=== PATIENT | male | born 1950 | race Caucasian/White ===

== ENCOUNTER 2016-10-22 22:56 | Inpatient (IN) | payer MEDICARE ==
[~2016-10-22] VITALS: Ht 180.3 cm; Wt 77.6 kg
--- NOTE | 2016-10-22 23:21 | NUR ---
PT TO RM 16 VIA EMS.
--- NOTE | 2016-10-23 00:01 | NUR ---
BILAT LOWER EXTREMITIES WITH WEEPING SKIN, SLOUGHING PT'S SOCKS LOOK EMBEDDED ONTO LEGS. PT RELATED HE HAS NOT HAD HIS SOCKS OF IN WEEKS.
--- NOTE | 2016-10-23 00:30 | NUR ---
PTS RESP 24 COURSE. PT DENIED SOB.
[2016-10-23 01:04] LABS: HEMATOCRIT 48.1 % (39.0-50.0); HEMOGLOBIN 16.5 g/dl (14.0-18.0); IMMATURE GRANULOCYTES 1.3 % (0.0-1.0); MEAN CELL VOLUME 92.9 fL CALC (80.0-100.0); MEAN CORPUSCULAR HGB 31.9 pG CALC (26.0-32.0); MEAN CORPUSCULAR HGB CONC 34.3 g/L CALC (32.0-36.0); NEUT# 10.94 thou/uL (1.82-7.42); RED BLOOD COUNT 5.18 mill/uL (4.70-6.10); RED CELL DISTRI WIDTH 11.7 % (11.5-15.5)
[2016-10-23 01:29] LABS: URINE BILIRUBIN - DIPSTICK NEGATIVE (NEGATIVE); URINE BLOOD DIPSTICK MODERATE (NEGATIVE); URINE CLARITY CLEAR; URINE COLOR YELLOW; URINE GLUCOSE - DIPSTICK NEGATIVE (NEGATIVE); URINE KETONE NEGATIVE (NEGATIVE); URINE LEUK ESTERASE NEGATIVE (NEGATIVE); URINE NITRITE - DIPSTICK NEGATIVE (Negative); URINE PROTEIN - DIPSTICK NEGATIVE (NEG-TRACE); URINE SPECIFIC GRAVITY <=1.005; URINE UROBILINOGEN - DIPSTICK 0.2 E.U./dL (0.2)
[2016-10-23 01:30] LABS: ALBUMIN 3.4 g/dL (3.2-5.0); ALKALINE PHOSPHATASE 147 u/l (38-126); ANION GAP 15 (6-22 (CALC)); BILIRUBIN, TOTAL 0.7 mg/dL (0.0-1.4); BUN 13 mg/dL (8-23); BUN/CREATININE RATIO 22 (12-20 (CALC)); CALCIUM 8.8 mg/dL (8.4-10.2); CARBON DIOXIDE 27 mmol/l (22-30); CHLORIDE 85 mmol/l (95-108); CREATININE 0.6 mg/dL (0.7-1.3); GFR > 60 ML/MIN (>=60 (CALC)); GFR FOR AFR.AMER. > 60 ML/MIN (>=60 (CALC)); GLUCOSE 100 mg/dL (82-115); POTASSIUM 5.1 mmol/l (3.5-5.1); SGOT/AST 38 u/l (19-48); SGPT/ALT 37 u/l (11-66); SODIUM 122 mmol/l (137-146); TOTAL PROTEIN 6.3 g/dL (6.3-8.2)
--- NOTE | 2016-10-23 01:30 | NUR ---
PT WITH NO NEEDS AT THIS TIME.
[2016-10-23 01:41] LABS: MYOGLOBIN 160 ng/mL (0 - 121)
--- NOTE | 2016-10-23 02:45 | NUR ---
PT REPOSITIONED. DENIED SOB. BILAT LOWER EXTREMITES CONTINUE PEEL AND WEEP ONTO SHEETS.
--- NOTE | 2016-10-23 04:15 | NUR ---
PT AWAKE AND ALERT. NO NEEDS AT THIS TIME.
--- NOTE | 2016-10-23 05:30 | NUR ---
PT WAITING FOR ADMISSION. PO FLUIDS PROVIDED, PER DR KAISER
--- NOTE | 2016-10-23 07:17 | NUR ---
REPORT TO [facility]/SURG.
--- NOTE | 2016-10-23 07:35 | NUR ---
PT TAKEN TO [place] [id number] WITHOUT INCIDENT. ALL BELONGINGS WITH PT INCLUDING CANE. BEV DE LA GARZA AT BEDSIDE.
--- NOTE | 2016-10-23 07:40 | NUR ---
PT ARRIVED TO THE UNIT VIA STRETCHER ACCOMPANIED BY STAFF. STATING" I CANT WALK WELL" IV SITE IS FREE FROM REDNESS OR EDEMA. TELE MONITOR IN PLACE. CONTINUE TO OBSERVE AND MONITOR.
[2016-10-23 07:45] VITALS: BP 154/63
[2016-10-23 09:57] LABS: HEMATOCRIT 45.1 % (39.0-50.0); HEMOGLOBIN 15.8 g/dl (14.0-18.0); IMMATURE GRANULOCYTES 0.8 % (0.0-1.0); MEAN CELL VOLUME 91.7 fL CALC (80.0-100.0); MEAN CORPUSCULAR HGB 32.1 pG CALC (26.0-32.0); NEUT# 10.26 thou/uL (1.82-7.42); RED BLOOD COUNT 4.92 mill/uL (4.70-6.10); RED CELL DISTRI WIDTH 11.8 % (11.5-15.5)
[2016-10-23 10:30] LABS: ANION GAP 10 (6-22 (CALC)); BUN 10 mg/dL (8-23); BUN/CREATININE RATIO 18 (12-20 (CALC)); CALCIUM 8.4 mg/dL (8.4-10.2); CARBON DIOXIDE 28 mmol/l (22-30); CHLORIDE 93 mmol/l (95-108); CREATININE 0.6 mg/dL (0.7-1.3); GFR > 60 ML/MIN (>=60 (CALC)); GFR FOR AFR.AMER. > 60 ML/MIN (>=60 (CALC)); GLUCOSE 112 mg/dL (82-115); POTASSIUM 4.4 mmol/l (3.5-5.1); SODIUM 127 mmol/l (137-146)
--- NOTE | 2016-10-23 10:41 | NUR ---
ASSESSMENT IS COMPLETED: PT DOES DRINK AND SMOKING MARIJUANA. IV SITE IS FREE FROM REDNESS OR EDEMA. BILAT LEGS ARE EDEMATOUS AND FLOUGHING OF THE SKIN. PAST 6 MONTHS PER PT. CONITNUE TO OSBERVE AND MONITOR.
--- NOTE | 2016-10-23 12:18 | NUR ---
S: DEVIKA WISE is a 66 M who presents with Cellulitis. He has a history of frequent falls. All medications in patient's chart were reviewed. O: VS: BP 121/79, P 111, RR 28,T 97.4 W 75.8kg, HT 180.3cm, Scr=1,CrCl= 76.8 ml/min A: Blood culture is pending. P: Patient had Zosyn 3.375gm IV Q6H. Vancomycin ordered for pharmacy to dose. Start Vancomycin 1000mg IV Q12H. Vancomycin trough is drawn before the 4th dose on 10/24/16 at 2130hrs. Vancomycin goal trough is between 10-15 mcg/ml. Pharmacy will follow and or advise on antibiotics use as needed.
[2016-10-23 13:30] VITALS: BP 134/84
--- NOTE | 2016-10-23 13:44 | NUR ---
PT C;/O DISCOMFORT/PAIN TO JENNIFER POLK MD NOTIFIED; WILL CONTINUE TO MONITOR.
--- NOTE | 2016-10-23 15:30 | NUR ---
PT ASSISTED TO SHOWER; BILAT LE SOAKED IN WATER AND SOCKS TAKEN OFF AT THIS TIME; BILAT 3+ REDNESS, WITH THICK AMOUNT OF DRY SCALY SKIN; TELE MONITOR IN PLACE; CALL BREEN WITHIN REACH; WILL CONTINUE TO MONITOR.
[2016-10-23 16:48] VITALS: BP 128/78
--- NOTE | 2016-10-23 17:16 | NUR ---
DR. GAR IN TO SEE PT; PLAN OF CARE DISCUSSED
[2016-10-23 19:45] VITALS: BP 164/80
--- NOTE | 2016-10-23 20:42 | NUR ---
MEDICATED WITH DILAUDID 1MG IV FOR C/O LEG PAIN. IV FLUIDS INFUSING TO LAC, IV SITE POSITIONAL AND EMS SITE WILL CHANGE DURING THE SHIFT. RESPIRATIONS EVEN AND UNLABORED LUNGS WHEEZY O2 @2L VIA NC. WILL CONTINUE TO MONITOR.
--- NOTE | 2016-10-23 22:53 | NUR ---
PT RESTING WITH EYES CLOSED, RESPIRATIONS EVEN AND UNLABORED. CALL LIGHT IN REACH.
[2016-10-24 00:15] VITALS: BP 121/45
--- NOTE | 2016-10-24 00:35 | NUR ---
PT IS VERY SOUND SLEEPER, RESPIRATIONS EVEN AND UNLABORED ON O2 @2L VIA NC, O2 SAT 90%. IV FLUIDS INFUSING TO LFA WITH NO COMPLICATIONS. WHEN ASKED IF IN PAIN OR NEEDS ANYTHING PT OPENS EYES AND SHAKES HEAD NO, THEN BACK TO SLEEP. WILL CONTINUE TO MONITOR.
[2016-10-24 04:11] VITALS: BP 139/80
--- NOTE | 2016-10-24 04:25 | NUR ---
OOB TO BSC WITH ONE PERSON ASSISTANCE, STEADY GAIT. VOIDING DARK YELLOW URINE. BACK TO BED MEDICATED WITH DILAUDID FOR BLE PAIN. CALL LIGHT IN REACH.
[2016-10-24 07:02] LABS: HEMATOCRIT 47.6 % (39.0-50.0); HEMOGLOBIN 15.9 g/dl (14.0-18.0); IMMATURE GRANULOCYTES 0.8 % (0.0-1.0); MEAN CELL VOLUME 95.6 fL CALC (80.0-100.0); MEAN CORPUSCULAR HGB 31.9 pG CALC (26.0-32.0); MEAN CORPUSCULAR HGB CONC 33.4 g/L CALC (32.0-36.0); NEUT# 10.04 thou/uL (1.82-7.42); RED BLOOD COUNT 4.98 mill/uL (4.70-6.10); RED CELL DISTRI WIDTH 11.9 % (11.5-15.5)
[2016-10-24 07:21] LABS: ANION GAP 13 (6-22 (CALC)); BUN 12 mg/dL (8-23); BUN/CREATININE RATIO 18 (12-20 (CALC)); CALCIUM 8.6 mg/dL (8.4-10.2); CARBON DIOXIDE 28 mmol/l (22-30); CHLORIDE 98 mmol/l (95-108); CREATININE 0.7 mg/dL (0.7-1.3); GFR > 60 ML/MIN (>=60 (CALC)); GFR FOR AFR.AMER. > 60 ML/MIN (>=60 (CALC)); GLUCOSE 123 mg/dL (82-115); POTASSIUM 4.9 mmol/l (3.5-5.1); SODIUM 134 mmol/l (137-146)
[2016-10-24 07:39] VITALS: BP 155/91
--- NOTE | 2016-10-24 07:39 | NUR ---
ASSESSMENT IS COMPLETED: IV SITE IS FREE FROM REDNESS OR EDEMA. BILATERAL LEGS ARE RED AND SCALY OF SKIN. CONITNUE TO OBSERVE AND MONITOR.
[2016-10-24 12:00] VITALS: BP 148/87
--- NOTE | 2016-10-24 12:30 | NUR ---
PT IS RELAXING IN BED WITH NO DISTRESS NOTED IV SITE IS FREE FROM REDNESS OR EDEMA.
[2016-10-24 16:00] VITALS: BP 149/88
--- NOTE | 2016-10-24 16:30 | NUR ---
PT IS RELAXING IN BED WITH NO DISTRESS NOTED. A LITTLE CONCERNED RE: SHAKING OF THE LEGS DR. FERREIRA AND DR LANGSTON IN TO VISIT WITH PT. IV SITE IS FREE FROM REDNESS OR EDEMA.
--- NOTE | 2016-10-24 19:10 | NUR ---
REPORT RECEIVED FROM MARIVEL; PT.UPRIGHT IN BED WATCHING TV, DENIES ANY NEEDS AT THIS TIME; CALL LIGHT W/IN REACH AND PT.ENCOURAGED TO CALL NEEDS ARISE;
[2016-10-24 19:48] VITALS: BP 138/71
--- NOTE | 2016-10-24 22:00 | NUR ---
PT.MEDICATED ORDERS PROVIDE; PT.ASKED FOR PLAN OF CARE TO BE EXPLAINED, ASKED HOW LONG TREATMENT WOULD TAKE, WANTED TO KNOW EXACTLY WHAT TIME HIS IV FLUIDS WOULD COMPLETE, WHAT WOULD HAPPEN AFTER THEY WERE COMPLETED, PT.WANTED TO KNOW EXACTLY WHAT TIME THE DOCTOR WOULD BE THERE TO SEE HIM; I REVIEWED THE POC,MEDICATION SCHEDULE,IV FLUID SCHEDULE, W/PT.TO THE BEST OF MY ABILITY KNOWN AT THIS TIME; PT.ASKED FOR THIS TO ALL BE REPEATED 3X BEFORE LEAVING THE ROOM; PT.LEFT W/CALL LIGHT AND INSTRUCTED TO CALL ASSISTANCE WAS NEEDED
[2016-10-25] VITALS (7 sets, daily range): BP systolic 155–180; BP diastolic 70–101
--- NOTE | 2016-10-25 00:10 | NUR ---
PT.CALLED TO ASK A QUESTION, UPON ENTERING ROOM, PT.PROCEEDED TO ASK WHAT THE STATUS OF THE APPLICATION WAS, I ASKED "WHAT APPLICATION," HE SAID "FOR THE TECHNICAL SUPPORT." I CLARIFIED TO THE PT.THAT HE WAS IN THE HOSPITAL AND MAY HAVE HAD A DREAM, HE ASKED 3 MORE TIMES, BUT PT.FINALLY CONCLUDED HE MAY BE THINKING OF HIS DREAM; WILL CONTINUE TO MONITOR PT.MENTAL STATUS; ANTIBIOTIC THERAPY ADMINISTERED; PT.O2 SATS 88%, PT.WAS NOT WEARING O2, PT.PLACED BACK ON O2 AND SAT LEVELS INCREASED R/W TO 95%; PT.INSTRUCTED TO KEEP O2 ON; WILL FOLLOW-UP AND CONTINUE TO MONITOR
--- NOTE | 2016-10-25 05:15 | NUR ---
PT.MEDICATED FOR PAIN IN LOWER LEGS BILATERALLY AND ADMINISTERED ANTIBIOTIC FLUIDS
--- NOTE | 2016-10-25 07:49 | NUR ---
BEDSIDE REPORT RECEIVED FROM DOMITILA RIOS. PT SOB, EXPIRATORY WHEEZING IN ALL LUNG VEGA. REPORTS PAIN IN BILATERAL LEGS, 7 ON PAIN SCALE. NOTHING AVAILABLE FOR PAIN AT THIS TIME. HR 113 BPM AND BP 176/98. DR. LANGSTON NOTIFIED. AWAITING FURTHER ORDERS.
--- NOTE | 2016-10-25 07:53 | NUR ---
S: DEVIKA WISE is a 66 M who presents with extensive severe lower extremity cellulitis. O: Scr=0.7, CrCl= 76.8 ml/min Vancomycin trough 10/24@8 = 8 A: Blood culture is pending. Vancomycin trough subtherapeutic. Increase in dose warranted. P: Patient is on piperacillin/tazobactam 3.375 gram IV q6h. Increase Vancomycin to 1500 mg IV Q12H. Expected trough: 13.0 mcg/ml Vancomycin trough is drawn before the 4th dose on 10/26 @2130. Vancomycin goal trough is between 10-20 mcg/ml. Pharmacy will follow and or advise on antibiotics use as needed.
--- NOTE | 2016-10-25 08:27 | NUR ---
LORTAB PO ORDERED FOR PAIN. ORDER GIVEN TO STOP IVF. DUONEB NOW, RT AT BEDSIDE ADMINISTERING NOW. O2 89% ON 2L O2 VIA NC, INCREASED TO 3L BY RT LISA. PT INFORMED OF CXR JUDI.
--- NOTE | 2016-10-25 10:40 | NUR ---
DR. LANGSTON IN TO SEE PT. NEW ORDERS FOR LASIX IV, PT, SILVADENE OINTMENT TO BILATERAL LEGS, THEN WRAPPED BID. IS PROVIDED TO PT. 1000ML INCENTIVE VOLUME ACHIEVED, GOAL OF 1500 ML SET. PT REPORTS UNDERSTANDING OF PLAN OF CARE UPDATE.
--- NOTE | 2016-10-25 13:37 | NUR ---
PHYSICAL THERAPY IN WITH PT AT THIS TIME.
[2016-10-25 14:22] LABS: HEMATOCRIT 45.4 % (39.0-50.0); MEAN CELL VOLUME 97.6 fL CALC (80.0-100.0); MEAN CORPUSCULAR HGB 32.3 pG CALC (26.0-32.0); NEUT# 12.67 thou/uL (1.82-7.42); RED BLOOD COUNT 4.65 mill/uL (4.70-6.10); RED CELL DISTRI WIDTH 12.2 % (11.5-15.5)
[2016-10-25 14:40] LABS: ANION GAP 13 (6-22 (CALC)); BUN 18 mg/dL (8-23); BUN/CREATININE RATIO 20 (12-20 (CALC)); CALCIUM 8.7 mg/dL (8.4-10.2); CARBON DIOXIDE 28 mmol/l (22-30); CHLORIDE 102 mmol/l (95-108); CREATININE 0.9 mg/dL (0.7-1.3); GFR > 60 ML/MIN (>=60 (CALC)); GFR FOR AFR.AMER. > 60 ML/MIN (>=60 (CALC)); GLUCOSE 109 mg/dL (82-115); POTASSIUM 3.9 mmol/l (3.5-5.1); SODIUM 140 mmol/l (137-146)
--- NOTE | 2016-10-25 16:32 | NUR ---
PT ASSITED TO BSC FOR BM. INCONTINENT IN PROCESS. STOOL ON LEG DRESSINGS AND FLOOR. PT AND FLOOR CLEANED. CLEAN DRESSINGS APPLIED TO BILATERAL LEGS.
--- NOTE | 2016-10-25 19:00 | NUR ---
REPORT RECEIVED FROM MARIVEL; PT.IS UPRIGHT IN BED WATCHING TV, APPEARS TO BE COMFORTABLE AND DENIES ANY PAIN OR DISCOMFORT AT THIS TIME, BUT WANTS TO KNOW WHEN HE CAN CALL ME NEXT FOR PAIN MEDICATIONS; WE DISCUSSED HIS SCHEDULE AND HOW TO REPORT PAIN IT STARTS; CALL LIGHT IS W/IN REACH AND BST
[2016-10-26 01:30] VITALS: BP 160/85
--- NOTE | 2016-10-26 04:50 | NUR ---
PT.B/P COMING BACK UP TO 165/116, MANUAL 165/110, HR88; NOTIFIED IN CONJUNCTION W/ANOTHER PT.ON THE FLOOR, HE WANTED TO KNOW HOW THE PT.SYMPTOMS WERE, I INFORMED HIM OF HOW THE PT.WAS DOING OTHERWISE AND HE SAID TO JUST MONITOR PT., DID NOT ORDER ANY BP MEDICATION AT THIS TIME; PT.OTHERWISE APPEARS WELL, DENIES ANY NEEDS AT THIS TIME AND HAS BEEN SLEEPING.
[2016-10-26 04:54] VITALS: BP 165/110
[2016-10-26 05:04] LABS: HEMATOCRIT 43.3 % (39.0-50.0); HEMOGLOBIN 14.1 g/dl (14.0-18.0); IMMATURE GRANULOCYTES 0.5 % (0.0-1.0); MEAN CELL VOLUME 98.4 fL CALC (80.0-100.0); MEAN CORPUSCULAR HGB CONC 32.6 g/L CALC (32.0-36.0); NEUT# 9.11 thou/uL (1.82-7.42); RED BLOOD COUNT 4.4 mill/uL (4.70-6.10); RED CELL DISTRI WIDTH 12.2 % (11.5-15.5)
[2016-10-26 05:18] LABS: ANION GAP 11 (6-22 (CALC)); BUN 21 mg/dL (8-23); BUN/CREATININE RATIO 31 (12-20 (CALC)); CALCIUM 8.5 mg/dL (8.4-10.2); CARBON DIOXIDE 29 mmol/l (22-30); CHLORIDE 103 mmol/l (95-108); CREATININE 0.7 mg/dL (0.7-1.3); GFR > 60 ML/MIN (>=60 (CALC)); GFR FOR AFR.AMER. > 60 ML/MIN (>=60 (CALC)); GLUCOSE 115 mg/dL (82-115); POTASSIUM 4.6 mmol/l (3.5-5.1); SODIUM 138 mmol/l (137-146)
[2016-10-26 07:58] VITALS: BP 162/78
--- NOTE | 2016-10-26 08:04 | NUR ---
PT SITTING ON SIDE OF BED; TOLERATING BREAKFAST WELL; TELE MONITOR IN PLACE; NO COMPLAINTS VOICED; CALL BREEN WITHIN REACH; WILL CONTINUE TO MONITOR.
--- NOTE | 2016-10-26 09:33 | NUR ---
PHYSICAL THERAPY IN WITH PT
--- NOTE | 2016-10-26 09:48 | NUR ---
PATIENT SEEN FOR GAIT TRAINING AND F.A. FOR 25 MINUTES. AMBULATED FOR 25 FEET X1. GAIT PATTERN IMPROVED FROM YESTERDAY WITH LESS ABDUCTION OF THE HIPS. GAIT REMAINS FLAT FOOTED AND MILDLY EXTERNALLY ROTATED. HE REQUIRES CONTINUAL CUING TO KEEP HIS WGT FORWARD ON THE WALKER. TRANSFER TRAINING SIT TO AND STAND PRACTISED NUMEROUS TIMES. HE WAS ABLE TO COME TO STAND WITHOUT FALLING BACKWARD WITH CUING, BUT COULD NOT TRANSFER STAND TO SIT WITHOUT ASSIST HE WOULD "PLOP". PATIENT'S ENDURANCE LIMIITED BY SOB. GAIT DONE WITH THE WALKER AND 02. HE WAS LEFT IN THE CHAIR WITH RESPIRATORY CARE PRESENT FOR A TREATMENT. VERBAL CUING GIVEN NOT TO TRANSFER WITHOUT A STAFF MEMBER TO ASSIST. HE WAS VERBALLY AGREEABLE.
--- NOTE | 2016-10-26 10:35 | NUR ---
DR. LANGSTON IN TO SEE PT; PLAN OF CARE DISCUSSED
[2016-10-26 11:37] VITALS: BP 162/94
--- NOTE | 2016-10-26 12:56 | NUR ---
PT IN CHAIR; INCONTINENT OF URINE AND STOOL; JEAN CARE PROVIDED; CALL BREEN WITHIN REACH; WILL CONTINUE TO MONITOR.
--- NOTE | 2016-10-26 15:00 | NUR ---
PT TO SHOWER; ASSISTED BY PLACEMENT SECRETARY;
--- NOTE | 2016-10-26 16:00 | NUR ---
SILVADENE APPLIED TO BILAT LE; WRAPPED WITH KERLIX AND SECURED WITH FORREST BANDAGE; PT MEDICATED FOR C/O LEG PAIN 03/07; CALL BREEN WITHIN REACH; WILL CONTINUE TO MONITOR.
[2016-10-26 16:44] VITALS: BP 168/90
[2016-10-26 18:58] VITALS: BP 179/99
--- NOTE | 2016-10-26 19:15 | NUR ---
REPORT RECEIVED FROM MARIVEL; PT.MEDICATED FOR PAIN UPON BEDSIDE REPORT; PT.DENIES ANY FURTHER NEEDS
--- NOTE | 2016-10-27 01:00 | NUR ---
PT.SLEEPING RESTFULLY AT THIS TIME; NO S/S OF DISTRESS
[2016-10-27 01:33] VITALS: BP 160/99
--- NOTE | 2016-10-27 02:20 | NUR ---
PT.UP TO BSC TRYING TO HAVE A BM, ON FLATUS PASSED; PT.BACK TO BED W/CALL LIGHT W/IN REACH
[2016-10-27 04:00] VITALS: BP 188/105
[2016-10-27 08:15] VITALS: BP 161/92
--- NOTE | 2016-10-27 08:15 | NUR ---
ASSESSMENT IS COMPLETED : IV SITE IS FREE FROM REDNESS OR EDEMA. DRESSING ON BILAT LEGS ARE CDI. PT IS SITTING UP IN THE CHAIR. DR. BILL IN TO VISIT WITH PT. CONTINUE TO OBSERVE AND MONITOR.
[2016-10-27 08:46] VITALS: BP 161/92
[2016-10-27] MEDS ORDERED: AMLODIPINE BESYL5 MG PO (10:25)
[2016-10-27] MEDS ORDERED: SILVER SULFA1 % TOP (10:29)
[2016-10-27] MEDS ORDERED: FLORASTOR250 M1 PO (10:29)
[2016-10-27] MEDS ORDERED: LIBRIUM25 M1 PO (10:29)
--- NOTE | 2016-10-27 11:39 | NUR ---
SPOKE WITH DR. GAR AND RE: DISCHARGE PLANS FOR PT. CASE MANAGEMENT CALLED AND STATED" EVERYTHING IS SET FOR PT TO BE TRANSPORTED TO [facility] TODAY AT 1500". PT WAS A LITTLE CONCERNED RE: IF DRESSING CHAMGES WILL BE COMPLETED TODAY, INFORMED PT THAT YES IT WILL BE PRIOR TO DISCHARGE. VERBALIZED UNDERSTANDING.
--- NOTE | 2016-10-27 12:43 | NUR ---
PT SITTING UP IN THE CHAIR. NO DISTRESS NOTED. IV SITE IS FREE FROM REDNESS OR EDEMA. CONTINUE TO OSEBRVE AND MONITOR.
--- NOTE | 2016-10-27 13:50 | NUR ---
PLUMBING HARDWARE ASSEMBLER WAITING DOWNSTAIRS FOR PT . EXPLAINED THAT WE WERE EXPECTING THEM AT 1500. PT COMPLETED SHOWER AND LEGS RECOVERED WITH SILVADENE AND KERLIX AND FORREST WRAP/. TOELRATED WELL.
--- NOTE | 2016-10-27 14:30 | NUR ---
IV SITE DISCONTINUED CATHETER INTACT. NO REDNESS OR EDEMA.
[2016-10-27] MEDS ORDERED: BACTRIM DS1 TAB PO (14:46)
--- NOTE | 2016-10-27 15:42 | NUR ---
SPOKE WITH LISY RAMESH AT [facility]. PT JUST ARRIVED ON THE FLOOR. CONTINUE TO OSBERVE AND MONITOR.
--- NOTE | 2016-10-28 08:18 | NUR ---
PHARMACY MEDICATION FOLLOW-UP Patient was seen in ED on 10/23/16 Cultures were reviewed from: Blood Patient was discharged with Rx for:BACTRIM DS C&S report came back with No Growth PLAN: Recommended: No Change Comment: CELLULITIS
== END 2016-10-27 15:20 | DRG 602 ==
LOC: ENPENDDIS → ED 22:56 → ED-I 23:30 → ED 10-23 06:24 → MS2 10-23 06:25
PROVIDERS: Emergency Medicine; ADMIT Internal Medicine; ATTEND Internal Medicine
DX: L03.116 Cellulitis of left lower limb (principal); J96.01 Acute respiratory failure with hypoxia; J44.1 Chronic obstructive pulmonary disease with (acute) exacerbation; E87.1 Hypo-osmolality and hyponatremia; L03.115 Cellulitis of right lower limb; I87.2 Venous insufficiency (chronic) (peripheral); F17.210 Nicotine dependence, cigarettes, uncomplicated; E86.0 Dehydration; K42.9 Umbilical hernia without obstruction or gangrene; F10.20 Alcohol dependence, uncomplicated; Z91.81 History of falling
CPT/HCPCS: J1650; J3370

== ENCOUNTER 2016-12-26 18:52 | Inpatient (IN) | payer MEDICARE ==
[~2016-12-26] VITALS: Ht 180.3 cm; Wt 68.5 kg
[~2016-12-26 18:52] MED LIST: AMLODIPINE BESYL5 MG PO; BACTRIM DS1 TAB PO; FLORASTOR250 M1 PO; LIBRIUM25 M1 PO; SILVER SULFA1 % TOP
[2016-12-26 19:50] LABS: HEMATOCRIT 46.4 % (39.0-50.0); HEMOGLOBIN 15.8 g/dl (14.0-18.0); IMMATURE GRANULOCYTES 0.9 % (0.0-1.0); MEAN CELL VOLUME 94.5 fL CALC (80.0-100.0); MEAN CORPUSCULAR HGB 32.2 pG CALC (26.0-32.0); MEAN CORPUSCULAR HGB CONC 34.1 g/L CALC (32.0-36.0); NEUT# 9.92 thou/uL (1.82-7.42); RED BLOOD COUNT 4.91 mill/uL (4.70-6.10); RED CELL DISTRI WIDTH 12.7 % (11.5-15.5)
[2016-12-26 20:16] LABS: ALBUMIN 4.6 g/dL (3.2-5.0); ALKALINE PHOSPHATASE 113 u/l (38-126); ANION GAP 19 (6-22 (CALC)); BILIRUBIN, TOTAL 1.7 mg/dL (0.0-1.4); BUN 8 mg/dL (8-23); BUN/CREATININE RATIO 18 (12-20 (CALC)); CALCIUM 9.3 mg/dL (8.4-10.2); CARBON DIOXIDE 29 mmol/l (22-30); CHLORIDE 96 mmol/l (95-108); CREATININE 0.5 mg/dL (0.7-1.3); ETHYL ALCOHOL 13 mg/dl (0-30); GFR > 60 ML/MIN (>=60 (CALC)); GFR FOR AFR.AMER. > 60 ML/MIN (>=60 (CALC)); GLUCOSE 89 mg/dL (82-115); POTASSIUM 4.2 mmol/l (3.5-5.1); SGOT/AST 140 u/l (19-48); SGPT/ALT 95 u/l (11-66); SODIUM 139 mmol/l (137-146); TOTAL PROTEIN 7.6 g/dL (6.3-8.2)
[2016-12-26 22:20] LABS: AMYLASE 45 u/l (30-110); LIPASE 22 u/l (23-300)
[2016-12-26 22:23] LABS: URINE BLOOD DIPSTICK MODERATE (NEGATIVE); URINE CLARITY CLEAR; URINE GLUCOSE - DIPSTICK NEGATIVE (NEGATIVE); URINE KETONE 15 mg/dL (NEGATIVE); URINE LEUK ESTERASE NEGATIVE (NEGATIVE); URINE NITRITE - DIPSTICK NEGATIVE (Negative); URINE PH 6.5 (4.5-8.0); URINE PROTEIN - DIPSTICK 30 mg/dL (NEG-TRACE)
[2016-12-26 22:26] LABS: URINE COLOR AMBER
[2016-12-26 22:27] LABS: URINE BILIRUBIN - DIPSTICK NEGATIVE (NEGATIVE)
[2016-12-26 22:28] LABS: BARBITURATES NEGATIVE (NEGATIVE); COCAINE NEGATIVE (NEGATIVE); METHADONE NEGATIVE (NEGATIVE); OXCYCODONE NEGATIVE (NEGATIVE); TETRAHYDROCANNABIONOL NEGATIVE (NEGATIVE); TRICYLIC ANTIDEPRESSANTS NEGATIVE (NEGATIVE)
[2016-12-26 22:35] LABS: URINE WBC 0-2 WBC/hpf (0-5)
[2016-12-26 23:10] VITALS: BP 170/91
[2016-12-27 01:00] VITALS: BP 151/90
[2016-12-27 04:10] VITALS: BP 155/82
[2016-12-27 05:54] LABS: HEMATOCRIT 42.1 % (39.0-50.0); IMMATURE GRANULOCYTES 0.8 % (0.0-1.0); MEAN CELL VOLUME 94.8 fL CALC (80.0-100.0); MEAN CORPUSCULAR HGB 31.5 pG CALC (26.0-32.0); MEAN CORPUSCULAR HGB CONC 33.3 g/L CALC (32.0-36.0); NEUT# 7.89 thou/uL (1.82-7.42); RED BLOOD COUNT 4.44 mill/uL (4.70-6.10); RED CELL DISTRI WIDTH 12.5 % (11.5-15.5)
[2016-12-27 06:16] LABS: ALBUMIN 3.3 g/dL (3.2-5.0); ALKALINE PHOSPHATASE 91 u/l (38-126); ANION GAP 11 (6-22 (CALC)); BILIRUBIN, TOTAL 1.3 mg/dL (0.0-1.4); BUN 9 mg/dL (8-23); BUN/CREATININE RATIO 21 (12-20 (CALC)); CALCIUM 8.5 mg/dL (8.4-10.2); CARBON DIOXIDE 31 mmol/l (22-30); CHLORIDE 96 mmol/l (95-108); CREATININE 0.4 mg/dL (0.7-1.3); GFR > 60 ML/MIN (>=60 (CALC)); GFR FOR AFR.AMER. > 60 ML/MIN (>=60 (CALC)); GLUCOSE 122 mg/dL (82-115); POTASSIUM 2.8 mmol/l (3.5-5.1); SGOT/AST 82 u/l (19-48); SGPT/ALT 80 u/l (11-66); SODIUM 135 mmol/l (137-146); TOTAL PROTEIN 5.5 g/dL (6.3-8.2)
[2016-12-27 14:01] VITALS: BP 149/87
[2016-12-27 17:00] VITALS: BP 157/84
[2016-12-27 19:32] VITALS: BP 153/95
[2016-12-27 23:50] VITALS: BP 162/104
[2016-12-28 00:46] VITALS: BP 160/104
[2016-12-28 01:54] VITALS: BP 161/94
[2016-12-28 03:30] VITALS: BP 143/87
[2016-12-28 05:56] LABS: HEMATOCRIT 44.2 % (39.0-50.0); HEMOGLOBIN 14.8 g/dl (14.0-18.0); IMMATURE GRANULOCYTES 0.9 % (0.0-1.0); MEAN CELL VOLUME 95.5 fL CALC (80.0-100.0); MEAN CORPUSCULAR HGB CONC 33.5 g/L CALC (32.0-36.0); NEUT# 7.99 thou/uL (1.82-7.42); RED BLOOD COUNT 4.63 mill/uL (4.70-6.10); RED CELL DISTRI WIDTH 12.6 % (11.5-15.5)
[2016-12-28 06:09] LABS: ANION GAP 14 (6-22 (CALC)); BUN 10 mg/dL (8-23); BUN/CREATININE RATIO 23 (12-20 (CALC)); CALCIUM 9.2 mg/dL (8.4-10.2); CARBON DIOXIDE 27 mmol/l (22-30); CHLORIDE 99 mmol/l (95-108); CREATININE 0.4 mg/dL (0.7-1.3); GFR > 60 ML/MIN (>=60 (CALC)); GFR FOR AFR.AMER. > 60 ML/MIN (>=60 (CALC)); GLUCOSE 95 mg/dL (82-115); POTASSIUM 3.6 mmol/l (3.5-5.1); SODIUM 137 mmol/l (137-146)
[2016-12-28 14:00] VITALS: BP 124/79
[2016-12-28 16:00] VITALS: BP 110/72
[2016-12-28 18:55] VITALS: BP 116/67
[2016-12-29 00:35] VITALS: BP 126/79
[2016-12-29 03:52] VITALS: BP 130/85
[2016-12-29 08:09] VITALS: BP 122/76
[2016-12-29 10:57] VITALS: BP 127/82
[2016-12-29 11:47] LABS: HEMATOCRIT 45.5 % (39.0-50.0); HEMOGLOBIN 15.2 g/dl (14.0-18.0); MEAN CELL VOLUME 95.6 fL CALC (80.0-100.0); MEAN CORPUSCULAR HGB 31.9 pG CALC (26.0-32.0); MEAN CORPUSCULAR HGB CONC 33.4 g/L CALC (32.0-36.0); RED BLOOD COUNT 4.76 mill/uL (4.70-6.10); RED CELL DISTRI WIDTH 12.8 % (11.5-15.5)
[2016-12-29 12:13] LABS: ANION GAP 13 (6-22 (CALC)); BUN 19 mg/dL (8-23); BUN/CREATININE RATIO 40 (12-20 (CALC)); CALCIUM 9.2 mg/dL (8.4-10.2); CARBON DIOXIDE 27 mmol/l (22-30); CHLORIDE 100 mmol/l (95-108); CREATININE 0.5 mg/dL (0.7-1.3); GFR > 60 ML/MIN (>=60 (CALC)); GFR FOR AFR.AMER. > 60 ML/MIN (>=60 (CALC)); GLUCOSE 99 mg/dL (82-115); POTASSIUM 3.7 mmol/l (3.5-5.1); SODIUM 136 mmol/l (137-146)
[2016-12-29] MEDS ORDERED: FOLIC ACI1 PO (13:56)
[2016-12-29] MEDS ORDERED: MULTIVITAMI9 PO (13:56)
[2016-12-29] MEDS ORDERED: LORTAB 10-325 M1 TAB PO (14:00)
== END 2016-12-29 15:10 | DRG 552 ==
LOC: ENPENDDIS → ED 18:52 → ED-I 21:20 → ED 21:59 → ICU 22:00 → MS2 12-27 14:15
PROVIDERS: Emergency Medicine; Internal Medicine; ADMIT Internal Medicine; ATTEND Internal Medicine
DX: S22.089A Unspecified fracture of T11-T12 vertebra, initial encounter for closed fracture (principal); G62.1 Alcoholic polyneuropathy; I10 Essential (primary) hypertension; F17.210 Nicotine dependence, cigarettes, uncomplicated; F10.20 Alcohol dependence, uncomplicated; F12.90 Cannabis use, unspecified, uncomplicated; K70.0 Alcoholic fatty liver; E87.6 Hypokalemia; K42.9 Umbilical hernia without obstruction or gangrene; C44.309 Unspecified malignant neoplasm of skin of other parts of face; R53.81 Other malaise; W19.XXXA Unspecified fall, initial encounter; Z91.19 Patient's noncompliance with other medical treatment and regimen; Z91.81 History of falling